=== PATIENT | female | born 1995 | race Two or more races ===

== ENCOUNTER → 2025-02-03 | Outpatient (CLI) | payer OTHER, SELFPAY ==
--- NOTE | 2025-02-03 15:31 | XR_ITS ---
EXAMINATION: Cervical spine, 5 views Technique: Cervical spine AP, AP odontoid, lateral, bilateral obliques, 5 views Exam date and time: January 1546 hours INDICATIONS: Left neck pain radiating to left shoulder post injury yesterday FINDINGS: Reversal normal cervical lordosis No cervical fracture Intact odontoid No neural foraminal stenosis Also cervical thoracic dextroscoliosis 14 degrees IMPRESSION: Kyphosis and scoliosis as above No cervical fracture or significant cervical disc narrowing
== END | disposition home or self-care (01) ==
PROVIDERS: PCP Physician Assistant; Referring Provider Physician Assistant; Visit Provider Physician Assistant
DX: M41.83 Other forms of scoliosis, cervicothoracic region (principal); S13.4XXA Sprain of ligaments of cervical spine, initial encounter; X58.XXXA Exposure to other specified factors, initial encounter
CPT/HCPCS: 72050